=== PATIENT | female | born 1945 | race Caucasian/White ===

== ENCOUNTER → 2016-06-04 | Outpatient (CLI) | payer MEDICARE | END | disposition home or self-care (01) | LOC: PCVCCLINIC 14:31 | PROVIDERS: ATTEND Internal Medicine Cardiovascular Disease | DX: I48.91 Unspecified atrial fibrillation (principal); R60.9 Edema, unspecified; I35.0 Nonrheumatic aortic (valve) stenosis; I10 Essential (primary) hypertension | CPT/HCPCS: 93005; G0463 ==

== ENCOUNTER → 2016-09-26 | Outpatient (CLI) | payer MEDICARE ==
--- NOTE | 2016-09-26 12:53 | PCVCIMAG ---
EXAM: BILATERAL LOWER EXTREMITY ARTERIAL DUPLEX INDICATION: Peripheral Arterial Disease. Leg pain. FINDINGS: Right Leg: Satisfactory arterial waveforms throughout the common/profunda/superficial femoral, popliteal, anterior tibial, peroneal, and posterior tibial arteries. No flow limiting stenosis seen. Left Leg: Satisfactory arterial waveforms throughout the common/profunda/superficial femoral, popliteal, anterior tibial, peroneal, and posterior tibial arteries. No flow limiting stenosis seen. IMPRESSION: No flow limiting stenosis in the right lower extremity. No flow limiting stenosis in the left lower extremity. LOC:[id number]
== END | disposition home or self-care (01) ==
LOC: PCVCIMAG 11:33
PROVIDERS: ATTEND Internal Medicine Cardiovascular Disease
DX: I73.9 Peripheral vascular disease, unspecified (principal); L97.909 Non-pressure chronic ulcer of unspecified part of unspecified lower leg with unspecified severity
CPT/HCPCS: 93925

== ENCOUNTER → 2016-12-04 | Outpatient (CLI) | payer MEDICARE ==
--- NOTE | 2016-12-04 15:24 | PCVCIMAG ---
APPROVED REPORT Study performed: 12/04/2016 13:30:18 EXAM: Comprehensive 2D, Doppler, and color-flow Echocardiogram Patient Location: Echo lab Status: routine BSA: 1.99 HR: 77 bpmBP: 140/84 mmHg Rhythm: NSR Other Information Study Quality: Adequate Risk Factors: Cardiac Risk Factors: HTN Indications Atrial Fibrillation Aortic Stenosis 2D Dimensions LVEF(%): 41.67 (>50%) IVSd: 11.08 (7-11mm)LVOT Diam: 23.18 (18-24mm) LVDd: 47.51 mm PWd: 11.20 (7-11mm) LVDs: 37.82 (25-40mm) Left Atrium: 49.42 (27-40mm) Aortic Root: 34.86 mm LV Single Plane 4CH: 49.65 % LV Single Plane 2CH: 48.90 %Blanco's LVEF: 49.28 % Biplane EF: 49.8 % Volumes Left Atrial Volume (Systole) Single Plane 4CH: 128.59 mLSingle Plane 2CH: 121.61 mL LA ESV Index: 64.00 mL/m2 Aortic Valve AoV Peak Rogerio.: 2.38 m/s AO Peak Gr.: 22.70 mmHgLVOT Max P.83 mmHg AO Mean Gr.: 12.19 mmHgLVOT Mean P.96 mmHg AO V2 Mean: 1.65 m/sLVOT Max V: 0.97 m/s AO V2 VTI: 49.06 cmLVOT Mean V: 0.65 m/s BARBER (VTI): 1.82 [id number] V1 VTI: 21.19 cm BARBER Vmax: 1.72 cm2 SV (LVOT): 89.38 mL Mitral Valve E/A Ratio: 1.4 MV Decel. Time: 253.93 ms MV E Max Rogerio.: 0.65 m/s MV A Rogerio.: 0.45 m/s IVRT: 83.04 ms Pulmonary Valve PV Peak Rogerio.: 0.81 m/sPV Peak Gr.: 2.63 mmHg Pulmonary Vein P Vein S: 0.37 m/sP Vein A: 0.31 m/s P Vein D: 0.53 m/sP Vein A Dur.: 114.2 msec P Vein S/D Ratio: 0.70 Tricuspid Valve TR Peak Rogerio.: 2.46 m/s TR Peak Gr.: 24.14 mmHg Left Ventricle The left ventricle is normal size. There is normal LV segmental wall motion. There is normal left ventricular wall thickness. Left ventricular systolic function is normal. The left ventricular ejection fraction is within the normal range. LVEF is 50-55%. Grade II - pseudonormal filling dynamics. Right Ventricle The right ventricle is normal size. The right ventricular systolic function is normal. Atria Left atrium is severely dilated. The right atrium size is normal. Aortic Valve Moderate aortic valve sclerosis. No aortic regurgitation is present. There is mild valvular aortic stenosis. Calculated aortic valve area is 1.7 cm2 with maximum pressure gradient of 23 mmHg and mean pressure gradient of 12 mmHg. Mitral Valve The mitral valve is normal in structure. Mild to moderate mitral regurgitation. No evidence of mitral valve stenosis. Tricuspid Valve The tricuspid valve is normal in structure. Mild tricuspid regurgitation with PAP of 31 mmHg. Pulmonic Valve The pulmonary valve is normal in structure. There is no pulmonic valvular regurgitation. Great Vessels The aortic root is normal in size. IVC is normal in size and collapses with >50% inspiration Pericardium There is no pericardial effusion. <Conclusion> The left ventricle is normal size. The left ventricular ejection fraction is within the normal range. The right ventricle is normal size. Left atrium is severely dilated. The right atrium size is normal. There is mild valvular aortic stenosis. Calculated aortic valve area is 1.7 cm2 with maximum pressure gradient of 23 mmHg and mean pressure gradient of 12 mmHg. Mild to moderate mitral regurgitation. Mild tricuspid regurgitation with PAP of 31 mmHg.
== END | disposition home or self-care (01) ==
LOC: PCVCIMAG 13:23
PROVIDERS: ATTEND Internal Medicine Cardiovascular Disease
DX: I08.2 Rheumatic disorders of both aortic and tricuspid valves (principal); I10 Essential (primary) hypertension; R60.9 Edema, unspecified; E11.9 Type 2 diabetes mellitus without complications; M19.90 Unspecified osteoarthritis, unspecified site; I48.0 Paroxysmal atrial fibrillation; Z93.6 Other artificial openings of urinary tract status; Z79.899 Other long term (current) drug therapy; Z87.891 Personal history of nicotine dependence
CPT/HCPCS: 93005; 93306; G0463

== ENCOUNTER → 2017-04-16 | Outpatient (CLI) | payer MEDICARE | END | disposition home or self-care (01) | LOC: PCVCCLINIC 11:09 | DX: I48.91 Unspecified atrial fibrillation (principal); R06.09 Other forms of dyspnea; I10 Essential (primary) hypertension; R60.9 Edema, unspecified; R94.31 Abnormal electrocardiogram [ECG] [EKG]; Z79.899 Other long term (current) drug therapy; Z87.891 Personal history of nicotine dependence | CPT/HCPCS: 93005; G0463 ==

== ENCOUNTER → 2017-05-02 | Outpatient (CLI) | payer MEDICARE | END | disposition home or self-care (01) | LOC: PCVCCLINIC 13:13 | DX: I10 Essential (primary) hypertension (principal); R60.9 Edema, unspecified; I34.0 Nonrheumatic mitral (valve) insufficiency; Z86.79 Personal history of other diseases of the circulatory system; Z79.899 Other long term (current) drug therapy; Z87.891 Personal history of nicotine dependence | CPT/HCPCS: 93005; G0463 ==

== ENCOUNTER → 2017-05-27 | Outpatient (CLI) | payer MEDICARE ==
[~2017-05-27] MED LIST: REGADENOSON 0.4 MG/5 ML DISP.SYRIN. IV
== END | disposition home or self-care (01) ==
LOC: PCVCIMAG 13:20
DX: I48.91 Unspecified atrial fibrillation (principal); R00.2 Palpitations; R06.00 Dyspnea, unspecified
CPT/HCPCS: 78452; 93017; A9500; J2785

== ENCOUNTER → 2017-05-30 | Outpatient (CLI) | payer MEDICARE | END | disposition home or self-care (01) | LOC: PCVCCLINIC 13:30 | DX: I10 Essential (primary) hypertension (principal); I48.1 Persistent atrial fibrillation; R06.09 Other forms of dyspnea; R94.31 Abnormal electrocardiogram [ECG] [EKG]; Z79.899 Other long term (current) drug therapy; Z87.891 Personal history of nicotine dependence | CPT/HCPCS: 93005; G0463 ==